=== PATIENT | female | born 1930 | race Caucasian/White ===

== ENCOUNTER 2017-10-24 10:54 | Inpatient (IN) | payer MEDICARE, OTHER ==
--- NOTE | 2017-10-24 12:10 | RADIOLOGY REPORT (SQ) ---
EXAM DESCRIPTION: CHEST SINGLE VIEW COMPLETED DATE/TIME: 10/24/2017 11:59 am REASON FOR STUDY: bed 6 sob COMPARISON: Chest films 09/23/2012, 06/29/2012, 04/23/2011 EXAM PARAMETERS: NUMBER OF VIEWS: One view. TECHNIQUE: Single frontal radiographic view of the chest acquired. RADIATION DOSE: NA LIMITATIONS: None. FINDINGS: LUNGS AND PLEURA: No opacities, masses or pneumothorax. No pleural effusion. MEDIASTINUM AND HILAR STRUCTURES: Moderate size retrocardiac hiatal hernia with air-fluid level. HEART AND VASCULAR STRUCTURES: Moderate cardiomegaly, stable BONES: No acute findings. HARDWARE: None in the chest. OTHER: No other significant finding. IMPRESSION: No acute infiltrates Stable moderate cardiomegaly Retrocardiac hiatal hernia TECHNICAL DOCUMENTATION: JOB ID: [id number] [employer]- All Rights Reserved Reading location - IP/workstation name: [email or web address]
[2017-10-24] MEDS ORDERED: IPRATROPIUM/ALBUTEROL 0.5-2.5 MG/3 ML AMPUL NEB ONE (12:18)
--- NOTE | 2017-10-24 12:20 | ER Document Report ---
ED General - General Chief Complaint: Shortness Of Breath Stated Complaint: SHORTNESS OF BREATH Time Seen by Provider: 10/24/17 12:07 Mode of Arrival: Ambulatory Information source: Patient Notes: This is an 87-year-old female with a history of hypertension, diabetes, dyslipidemia and chronic back pain who presents to the emergency room with shortness of breath, productive cough of yellow/green sputum which is progressed over the last few days. Patient was placed on patient antibiotics on Tuesday night and states that shortness of breath is been getting worse. Oxygen saturation was noted to be 90% on room air in triage. TRAVEL OUTSIDE OF THE [place] IN LAST 30 DAYS: No - HPI Onset: Just prior to arrival Onset/Duration: Gradual Quality of pain: No pain Severity: None Pain Level: Denies Associated symptoms: Shortness of breath. denies: Chest pain, Fever Exacerbated by: Movement Relieved by: Denies Similar symptoms previously: Yes Recently seen / treated by doctor: Yes - Related Data Allergies/Adverse Reactions: Sulfa (Sulfonamide Antibiotics) Allergy (Severe, Verified 10/24/17 12:03) Hives Past Medical History - General Information source: Patient - Social History Smoking Status: Never Smoker Cigarette use (# per day): No Chew tobacco use (# tins/day): No Frequency of alcohol use: None Drug Abuse: None Lives with: Family Family History: Reviewed & Not Pertinent Patient has suicidal ideation: No Patient has homicidal ideation: No - Past Medical History Cardiac Medical History: Reports: Hx Hypercholesterolemia, Hx Hypertension Pulmonary Medical History: Denies: Hx Tuberculosis Neurological Medical History: Denies: Hx Seizures Endocrine Medical History: Reports: Hx Diabetes Mellitus Type 2 - IDDM Renal/ Medical History: Denies: Hx Peritoneal Dialysis GI Medical History: Reports: Hx Gastroesophageal Reflux Disease Musculoskeltal Medical History: Reports Hx Arthritis Psychiatric Medical History: Reports: Hx Depression Past Surgical History: Reports: Hx Appendectomy, Hx Cardiac Catheterization, Hx Cholecystectomy, Hx Hysterectomy, Hx Orthopedic Surgery - back, right arm, Hx Tonsillectomy, Hx Urinary Tract Surgery - bladder tac. Denies: Hx Bowel Surgery , Hx Coronary Artery Bypass Graft, Hx Gastric Bypass Surgery, Hx Herniorrhaphy, Hx Mastectomy, Hx Pacemaker, Hx Tubal Ligation - Immunizations Immunizations up to date: Yes Hx Diphtheria, Pertussis, Tetanus Vaccination: Yes Hx Pneumococcal Vaccination: 04/23/11 Review of Systems - Review of Systems Notes: Review of systems: Constitutional: Denies fever, chills. EENT: Denies ear pain, sinus tenderness, throat pain, throat swelling. Cardiovascular: See H&P Respiratory: See H&P Abdomen: Denies abdominal pain, nausea, vomiting, diarrhea. Denies BRBPR or melena. Genitourinary: Denies dysuria, pyuria, hematuria, flank pain. Musculoskeletal: denies joint pain or swelling, denies back pain. Neurologic: Denies headache, photophobia, neck stiffness, weakness. Denies loss of bowel or bladder function. Denies saddle anesthesia. Skin: Denies rash, lesions. Physical Exam - Vital signs Vitals: Temp Pulse Resp BP Pulse Ox 98.3 F 62 24 H 163/67 H 90 L 10/24/17 11:03 10/24/17 11:03 10/24/17 11:03 10/24/17 11:03 10/24/17 11:03 Notes: Physical exam: GENERAL: 87-year-old female, alert and oriented 3, complaining of some shortness of breath HEAD: Atraumatic, normocephalic. EYES: Pupils equal round and reactive to light, extraocular movements intact, sclera anicteric, conjunctiva are normal. ENT: TMs normal, nares patent, oropharynx clear without exudates. Moist mucous membranes. NECK: Normal range of motion, supple without obvious mass or JVD. LUNGS: Crackles on the left side HEART: Regular rate and rhythm without murmurs, rubs or gallops. ABDOMEN: Soft, normoactive bowel sounds. No tenderness to palpation. No guarding, no rebound. No masses appreciated. EXTREMITIES: Normal range of motion, no pitting or edema. No clubbing or cyanosis. NEUROLOGICAL: Cranial nerves II through XII grossly intact. Normal speech, moving all extremities. PSYCH: Normal mood, normal affect. SKIN: Warm, Dry, normal turgor, no rashes or lesions noted. Course - Re-evaluation Re-evalutation: 10/24/17 16:35 Note: This is an 87-year-old female who recently started on antibiotics for presumptive pneumonia. Patient's been progressively short of breath and was noted to be hypoxic on room air in triage (with an O2 sat of 90%). Patient was initially started on the biotics with labs sent. CTA of the chest reveals more of a pulmonary edema picture. Her BNP is elevated. She was started on nitrates and Lasix and will be admitted to the hospital. - Vital Signs Vital signs: Temp Pulse Resp BP Pulse Ox 98.3 F 62 26 H 163/67 H 94 10/24/17 11:03 10/24/17 11:03 10/24/17 12:00 10/24/17 11:03 10/24/17 12:00 - Laboratory Result Diagrams: 10/24/17 12:05 10/24/17 12:05 Laboratory results interpreted by me: 10/24/17 10/24/17 10/24/17 12:05 12:05 12:05 RDW 14.7 H Monocytes % 19.8 H Est GFR ( Amer) 58 L Est GFR (Non-Af Amer) 48 L NT-Pro-B Natriuret Pep 684 H - Diagnostic Test Radiology reviewed: Image reviewed, Reports reviewed - PA shows no pulmonary emboli. There is a ground glass appearance consistent with pulmonary edema. - EKG Interpretation by Me Rate: Normal Rhythm: NSR - EKG shows normal sinus rhythm with a ventricular rate of 61, premature atrial, plaques, no acute ST-T wave changes Critical Care Note - Critical Care Note Total time excluding time spent on procedures (mins): 60 Discharge - Discharge Clinical Impression: Pulmonary edema Condition: Stable Disposition: ADMITTED INPATIENT Admitting Provider: Hospitalist - Dr Harden Unit Admitted: Telemetry
[2017-10-24] MEDS ORDERED: CEFTRIAXONE 1 GM/D5W RTU 1 GM/50 ML RTUPB IV ONE (12:21)
[2017-10-24] MEDS ORDERED: AZITHROMYCIN INJ 500 MG VIAL IV ONE (12:22)
[2017-10-24 12:38] LABS: ABSOLUTE EOSINOPHILS # (AUTO) 0.2 10^3/uL (0.0-0.6); ABSOLUTE LYMPHOCYTES (AUTO) 0.8 10^3/uL (0.5-4.7); ABSOLUTE NEUT (AUTO) 3.2 10^3/uL (1.7-8.2); BASOPHILS % (AUTO) 0.4 % (0-2); EOSINOPHILS % (AUTO) 3.1 % (0-6); HEMATOCRIT 36.5 % (36.0-47.0); HEMOGLOBIN 12.1 g/dL (12.0-15.5); LYMPHOCYTES % (AUTO) 14.7 % (13-45); MEAN CORPUSCULAR HEMOGLOBIN 28.8 pg (27.0-33.4); MEAN CORPUSCULAR VOLUME 87 fl (80-97); MONOCYTES % (AUTO) 19.8 % (3-13); PLATELET COUNT 180 10^3/uL (150-450); RED BLOOD COUNT 4.19 10^6/uL (3.72-5.28); RED CELL DISTRIBUTION WIDTH 14.7 % (11.5-14.0); TOTAL CELLS COUNTED % (AUTO) 100 %; WHITE BLOOD COUNT 5.1 10^3/uL (4.0-10.5)
[2017-10-24 13:01] LABS: ALANINE AMINOTRANSFERASE 24 U/L (9-52); ALBUMIN 3.8 g/dL (3.5-5.0); ALKALINE PHOSPHATASE 48 U/L (38-126); ANION GAP 13 (5-19); ASPARTATE AMINO TRANSFERASE 23 U/L (14-36); BILIRUBIN,DIRECT 0.3 mg/dL (0.0-0.4); BILIRUBIN,TOTAL 0.3 mg/dL (0.2-1.3); BLOOD UREA NITROGEN 19 mg/dL (7-20); CALCIUM 9.1 mg/dL (8.4-10.2); CARBON DIOXIDE 27 mmol/L (22-30); CHLORIDE 103 mmol/L (98-107); CREATINE KINASE 73 U/L (30-135); GLUCOSE 81 mg/dL (75-110); POTASSIUM 3.8 mmol/L (3.6-5.0); SODIUM 143.4 mmol/L (137-145); TOTAL PROTEIN 6.5 g/dL (6.3-8.2)
[2017-10-24 13:23] LABS: TROPONIN I 0.021 ng/mL
[2017-10-24 15:21] LABS: APPEARANCE,URINE CLEAR; BILIRUBIN,URINE NEGATIVE (NEGATIVE); COLOR,URINE STRAW; GLUCOSE, URINE NEGATIVE (NEGATIVE); KETONES,URINE NEGATIVE (NEGATIVE); LEUKOCYTE ESTERASE,URINE NEGATIVE (NEGATIVE); NITRITE,URINE NEGATIVE (NEGATIVE); PROTEIN,URINE NEGATIVE (NEGATIVE); URINE SPECIFIC GRAVITY 1.015; UROBILINOGEN,URINE NEGATIVE mg/dL (<2.0)
--- NOTE | 2017-10-24 15:34 | RADIOLOGY REPORT (SQ) ---
EXAM DESCRIPTION: CTA CHEST COMPLETED DATE/TIME: 10/24/2017 2:57 pm REASON FOR STUDY: sob COMPARISON: CT chest 07/06/2009 Chest films 10/24/2017, 09/23/2012, 07/11/2009 TECHNIQUE: CT scan of the chest performed using helical scanning technique with dynamic intravenous contrast injection. Images reviewed with lung, soft tissue and bone windows. Reconstructed coronal and sagittal MPR images reviewed. Additional 3 dimensional post-processing performed to develop Maximal Intensity Projection images (IA P). All images stored on PACS. All CT scanners at this facility use dose modulation, iterative reconstruction, and/or weight based d osing when appropriate to reduce radiation dose to as low as reasonably achievable (ALARA). [facility]: Dose Right [facility]: CareDose [facility]: Dose Right [facility]: Teradose 4D [facility]: Datamars CONTRAST TYPE AND DOSE: 82.2 mL of Isovue 370- low osmolar. Contrast bolus adequate for pulmonary arteries and aorta. RENAL FUNCTION: Creatinine 1.08 RADIATION DOSE: 42 mGy . LIMITATIONS: None. FINDINGS: LUNGS AND PLEURA: There is diffuse patchy ground-glass opacity throughout both lungs worri some for pulmonary edema. No pleural effusions. No pneumothorax. No dense consolidation with air bronchograms worrisome for p neumonia. AORTA AND GREAT VESSELS: No thoracic aortic aneurysm. No thoracic dissection. HEART: No pericardial effusion. Mild cardiomegaly. Heavy coronary artery calcifications. PULMONARY ARTERIES: No emboli visualized in the main pulmonary arteries or the segmental branches. HILAR AND MEDIASTINAL STRUCTURES: There is mild adenopathy nonspecific as follows: 2 x 1.5 cm pretracheal lymph node axial image 30 1.5 x 1.1 cm prevascular lymph node axial image 35 3.3 x 2.3 cm sub- carinal lymph node axial image 51 Moderate size retrocardiac hiatal hernia. HARDWARE: None in the chest. UPPER ABDOMEN: 3 cm hypodensity right mid-pole kidney incompletely included in the field of view. Re nal ultrasound recommended for followup THYROID AND OTHER SOFT TISSUES: No masses. No adenopathy. BONES: No acute or significant finding. 3D MIPS: Confirm above findings. OTHER: No other significant finding. IMPRESSION: Diffuse ground-glass opacities from pulmonary edema Nonspecific mediastinal adenopathy Question right midpole renal cortical cyst versus mass COMMENT: Quality ID # [id number]: Final reports with documentation of one or more dose reduction techniques (e.g., Automated exposure control, adjustment of the mA and/or kV according to patient size, use of iterative reconstruction technique) TECHNICAL DOCUMENTATION: JOB ID: [id number] [employer]- All Rights Reserved Reading location - IP/workstation name: [email or web address]
[2017-10-24] MEDS ORDERED: FUROSEMIDE INJ/PF 40 MG/4 ML SDV IV ONE (15:36)
[2017-10-24] MEDS ORDERED: NITROGLYCERIN 2% OINTMENT 1 GM PACKET TP ONE (16:35)
[2017-10-24] MEDS ORDERED: DEXTROSE 50%-WATER 25 GM/50 ML DISP.SYRIN IV PRN ×2 (17:45)
[2017-10-24] MEDS ORDERED: GLUCAGON,HUMAN RECOMB 1 MG INJ IM PRN (17:45)
[2017-10-24] MEDS ORDERED: DEXTROSE 40% GEL 15 GM TUBE PO PRN ×2 (17:45)
[2017-10-24] MEDS ORDERED: NITROGLYCERIN 0.4 MG/TAB 25 TAB/BOTTLE SL PRN (17:51)
[2017-10-24] MEDS ORDERED: CYCLOBENZAPRINE HCL 10 MG TABLET PO PRN (17:51)
[2017-10-24] MEDS ORDERED: ESTRADIOL VG SCH ×2 (18:00→18:45)
--- NOTE | 2017-10-24 18:14 | PDOC H&P ---
History of Present Illness Admission Date/PCP: 10/24/17 16:37 LUIS HERNANDEZ MD Patient complains of: SOB and cough History of Present Illness: The patient is an 87 year old female with a past medical history of Type 2 diabetes Hypertension GERD Chronic pain Anemia of chronic disease Vitamin D deficiency Depression Chronic venous insufficiency Eczema Arthritis Chronic bilateral lower extremity edema next Hyperlipidemia Urinary incontinence Outpatient medications: Coreg 25 mg twice a day Levaquin 750 mg daily Today is day 3 [place] 7.5 every 8 as needed Fentanyl patch 25 mcg every 72 hours Valsartan 160 mg daily Imdur 30 mg daily Pantoprazole 40 mg daily Lasix 20 mg daily Flexeril 10 mg at bedtime as needed Singulair daily Aspirin 81 mg daily Nitroglycerin sublingual as needed Insulin 70 3012 units with breakfast 10 units with dinner Simvastatin 20 mg daily Toviaz 8 mg daily Estradiol vaginal cream Tuesday Benzonatate 100 mg PO prn Denies a prior history of heart failure or atrial fibrillation. Healthcare power of tax attorney is her daughter Tiffanie. Phone #[phone]. The patient requests to be a full code. She presented to the hospital with cough with yellow expectoration which started 3 days ago and she was started on Levaquin by her PCP. Dyspnea progressively got worse with lower extremity edema and chest tightness. She was found to pulmonary edema and was given IV Lasix and nebs. Feels better. Denies chest pain or sore throat. She lives with her daughter who has pneumonia. EKG shows Afib with HR in 50s. Past Medical History Cardiac Medical History: Reports: Hyperlipidema, Hypertension Pulmonary Medical History: Denies: Tuberculosis Neurological Medical History: Denies: Seizures Endocrine Medical History: Reports: Diabetes Mellitus Type 2 - IDDM GI Medical History: Reports: Gastroesophageal Reflux Disease Musculoskeltal Medical History: Reports: Arthritis Psychiatric Medical History: Reports: Depression Past Surgical History Past Surgical History: Reports: Appendectomy, Cardiac Catheterization, Cholecystectomy, Hysterectomy, Orthopedic Surgery - back, right arm, Tonsillectomy Denies: Coronary Artery Bypass Graft, Gastric Bypass Surgery, Herniorrhaphy, Mastectomy, Pacemaker, Tubal Ligation Social History Smoking Status: Never Smoker Hx Recreational Drug Use: No Hx Prescription Drug Abuse: No - Advance Directive Resuscitation Status: Full Code Family History Family History: Other - Blood clots- mother Parental Family History Reviewed: Yes Children Family History Reviewed: Yes Sibling(s) Family History Reviewed.: Yes Medication/Allergy Home Medications: Fesoterodine Fumarate [Toviaz] 8 mg PO DAILY 04/23/11 Simvastatin [Zocor 20 mg Tablet] 20 mg PO QHS 04/23/11 Cyclobenzaprine HCl [Flexeril 10 mg Tablet] 10 mg PO HSP PRN 04/24/11 Insuln Asp Prt/Insulin Aspart [Novolog Mix 70-30 Flexpen Syrn] 20 unit SQ [id number] 06/28/12 Furosemide [Lasix 20 mg Tablet] 20 mg PO QAM 09/23/12 Valsartan [Diovan 160 mg Tablet] 160 mg PO DAILY 09/23/12 Aspirin [Aspirin EC] 81 mg PO DAILY 10/24/17 Benzonatate 100 mg PO TIDP PRN MDD FOR 10DAYS STARTING 10/22/17 10/24/17 Cyclosporine 0.05% Oph Emulsio [Restasis 0.05% Opthalmic Droperette] 1 drop BTH_ EYE DAILY 10/24/17 Estradiol [Estrace] 1 applic VG QHS 10/24/17 Fentanyl [Duragesic 25 Mcg/Hr Transdermal Patch] 1 each TD Q3D 10/24/17 Hydrocodone/Acetaminophen [Hydrocodon-Acetaminoph 7.5-325] 1 tab PO Q8HP PRN Insulin Aspart Prot/Insuln Asp [Novolog Mix 70-30 Flexpen Syrn] 10 unit SQ ACSUPPER 10/24/17 Isosorbide Mononitrate [Imdur 30 mg Tablet.er] 30 mg PO DAILY 10/24/17 Levofloxacin 750 mg PO DAILY MDD FOR 7DAYS STARTING 10/22/17 10/24/17 Montelukast Sodium 10 mg PO DAILY 10/24/17 Nitroglycerin 1 tab SL Q5MP PRN 10/24/17 Pantoprazole Sodium 40 mg PO DAILY 10/24/17 Allergies/Adverse Reactions: Sulfa (Sulfonamide Antibiotics) Allergy (Severe, Verified 10/24/17 12:03) Hives Review of Systems Constitutional: ABSENT: fever(s) Eyes: ABSENT: visual disturbances Ears: ABSENT: hearing changes Nose, Mouth, and Throat: ABSENT: sore throat Cardiovascular: PRESENT: dyspnea on exertion, edema, orthropnea Respiratory: PRESENT: cough, dyspnea, sputum. ABSENT: hemoptysis Gastrointestinal: ABSENT: diarrhea, hematemesis, vomiting Genitourinary: PRESENT: other - urinary incontinence Integumentary: ABSENT: rash Neurological: ABSENT: focal weakness Psychiatric: ABSENT: hallucinations Endocrine: ABSENT: heat intolerance Hematologic/Lymphatic: ABSENT: easy bleeding Physical Exam Vital Signs: Temp Pulse Resp BP Pulse Ox 98.3 F 62 26 H 163/67 H 94 10/24/17 11:03 10/24/17 11:03 10/24/17 12:00 10/24/17 11:03 10/24/17 12:00 General appearance: PRESENT: no acute distress Head exam: PRESENT: normocephalic Eye exam: PRESENT: PERRLA. ABSENT: scleral icterus Ear exam: PRESENT: normal external ear exam Mouth exam: PRESENT: moist Teeth exam: PRESENT: edentulous Neck exam: ABSENT: tracheal deviation Respiratory exam: PRESENT: rhonchi, symmetrical, unlabored, wheezes Cardiovascular exam: PRESENT: irregular rhythm, RRR Vascular exam: ABSENT: pallor GI/Abdominal exam: PRESENT: normal bowel sounds, soft. ABSENT: tenderness Rectal exam: PRESENT: deferred Extremities exam: PRESENT: pedal edema Neurological exam: PRESENT: alert, awake, oriented to person, oriented to place , oriented to time, oriented to situation Psychiatric exam: PRESENT: appropriate affect Skin exam: ABSENT: petechiae Results Impressions: Chest X-Ray 10/24/17 11:47 IMPRESSION: No acute infiltrates Stable moderate cardiomegaly Retrocardiac hiatal hernia Chest/Abdomen CTA 10/24/17 13:56 IMPRESSION: Diffuse ground-glass opacities from pulmonary edema Nonspecific mediastinal adenopathy Question right midpole renal cortical cyst versus mass Assessment & Plan - Diagnosis (1) Acute exacerbation of CHF (congestive heart failure) Qualifiers: Heart failure type: unspecified Qualified Code(s): I50.9 - Heart failure, unspecified Is this a current diagnosis for this admission?: Yes Plan: Check echo to determine EF Serial cardiac enzymes, monitor on tele, Lasix, sodium restriction, monitor intake and output. ACEI, beta tiffanie (reduce Coreg dose- with hold parameters), Aspirin, Imdur. NTG s/l prn Continue Simvastatin. (2) Atrial fibrillation Qualifiers: Atrial fibrillation type: unspecified Qualified Code(s): I48.91 - Unspecified atrial fibrillation Is this a current diagnosis for this admission?: Yes Plan: Rate controlled. On Aspirin. On Coreg with hold parameters. Monitor on tele. Check Echo and TSH. (3) Acute bronchitis Is this a current diagnosis for this admission?: Yes Plan: Day 3 of Levaquin. Incentive spirometer, prn nebs, mucinex, flutter valve. (4) Chronic back pain Is this a current diagnosis for this admission?: Yes Plan: Continue Fentanyl patch and [place] prn. (5) GERD (gastroesophageal reflux disease) Qualifiers: Esophagitis presence: esophagitis presence not specified Qualified Code(s) : K21.9 - Gastro-esophageal reflux disease without esophagitis Is this a current diagnosis for this admission?: Yes Plan: PPI (6) Diabetes 1.5, managed as type 2 Is this a current diagnosis for this admission?: Yes Plan: Diabetic diet Insulin sliding scale. Reduce 70/30 dose since appetite is poor, monitor for hypoglycemia. (7) Stage II decubitus ulcer Is this a current diagnosis for this admission?: Yes Plan: She has chronic incontinence. Consider Jimenez given IV Lasix and to monitor urine output. (8) DVT prophylaxis Is this a current diagnosis for this admission?: Yes Plan: Subcutaneous Lovenox. - Time Time Spent: 50 to 70 Minutes
[2017-10-24] MEDS ORDERED: (PENDING PHARMACY ID) (Fesoterodine Fumarate [Toviaz] 8 MG) PO SCH (19:00)
[2017-10-24 19:26] LABS: CREATINE KINASE MB 1.12 ng/mL (<4.55); TROPONIN I 0.031 ng/mL
--- NOTE | 2017-10-24 20:17 | EKG REPORT ---
SEVERITY:- ABNORMAL ECG - A FIB VS SINUS WITH APCs, REC REPEAT EKG LEFT AXIS DEVIATION CONSIDER ANTEROSEPTAL INFARCT : Confirmed by: Zoey Ramirez 24-Oct-2017 20:16:59
[2017-10-24] MEDS: CYCLOSPORINE 0.05% OPH EMULSIO 0.4 ML DROPERETTE OU SCH (22:27)
[2017-10-24] MEDS: FUROSEMIDE INJ/PF 20 MG/2 ML SDV IV SCH (22:29)
[2017-10-24] MEDS: LEVOFLOXACIN 750 MG TABLET PO SCH (22:30)
[2017-10-24] MEDS: GUAIFENESIN 600 MG TABLET.SA PO SCH (22:30)
[2017-10-24] MEDS: SIMVASTATIN 10 MG TABLET PO SCH (22:31)
[2017-10-24] MEDS: CARVEDILOL 12.5 MG TABLET PO SCH (22:31)
[2017-10-24] MEDS: HYDROCODONE/ACETAMINOPHEN 7.5-325 MG TABLET PO PRN (22:32)
[2017-10-24] MEDS: INSULIN LISPRO 100 UNIT/ML 3 ML VIAL SUBCUT PRN (23:00)
[2017-10-25 02:35] LABS: CREATINE KINASE MB 0.79 ng/mL (<4.55)
[2017-10-25 02:44] LABS: TROPONIN I 0.046 ng/mL
[2017-10-25] MEDS: LANSOPRAZOLE 30 MG TAB.RAP.DR PO SCH (05:25)
[2017-10-25 06:57] LABS: HEMATOCRIT 36.5 % (36.0-47.0); HEMOGLOBIN 11.9 g/dL (12.0-15.5); MEAN CORPUSCULAR HEMOGLOBIN 28.3 pg (27.0-33.4); MEAN CORPUSCULAR HGB CONC 32.6 g/dL (32.0-36.0); MEAN CORPUSCULAR VOLUME 87 fl (80-97); PLATELET COUNT 172 10^3/uL (150-450); RED CELL DISTRIBUTION WIDTH 14.5 % (11.5-14.0); WHITE BLOOD COUNT 4.3 10^3/uL (4.0-10.5)
[2017-10-25 07:03] LABS: INTERNATIONAL RATION (INR) 1.11; PROTHROMBIN TIME 14.9 SEC (11.4-15.4)
[2017-10-25 07:04] LABS: PARTIAL THROMBOPLASTIN TIME 41.1 SEC (23.5-35.8)
[2017-10-25 07:22] LABS: ANION GAP 14 (5-19); BLOOD UREA NITROGEN 16 mg/dL (7-20); CALCIUM 8.8 mg/dL (8.4-10.2); CARBON DIOXIDE 30 mmol/L (22-30); CHLORIDE 101 mmol/L (98-107); CHOLESTEROL 134.19 mg/dL (0-200); GLUCOSE 124 mg/dL (75-110); PHOSPHORUS 4.1 mg/dL (2.5-4.5); POTASSIUM 3.4 mmol/L (3.6-5.0); SODIUM 144.5 mmol/L (137-145); TRIGLYCERIDES 85 mg/dL (<150)
[2017-10-25 07:33] LABS: DIRECT LDL 64 mg/dL (<100)
[2017-10-25] MEDS ORDERED: [UNRECOGNIZED DRUG - OTHER] SQ SCH (08:00)
[2017-10-25] MEDS ORDERED: INSULIN ASPART PROTAMINE SQ SCH ×2 (08:00)
[2017-10-25] MEDS ORDERED: [UNRECOGNIZED DRUG - OTHER] SQ SCH (08:00)
[2017-10-25] MEDS ORDERED: INSULIN ASPART SQ SCH ×2 (08:00)
--- NOTE | 2017-10-25 08:57 | EKG REPORT ---
SEVERITY:- ABNORMAL ECG - SINUS RHYTHM ANTERIOR INFARCT, AGE INDETERMINATE : Confirmed by: Zoey Ramirez 25-Oct-2017 08:55:53
[2017-10-25] MEDS: HUM INSULIN NPH/REG INSULIN HM 100 UNIT/1 ML 3 ML SUBCUT SCH ×2 (09:16→19:58)
[2017-10-25] MEDS: ENOXAPARIN SODIUM INJ 40 MG/0.4 ML DISP.SYRIN SUBCUT SCH (09:18)
[2017-10-25] MEDS: FUROSEMIDE INJ/PF 20 MG/2 ML SDV IV SCH ×2 (09:19→22:13)
[2017-10-25] MEDS: GUAIFENESIN 600 MG TABLET.SA PO SCH ×2 (09:19→22:13)
[2017-10-25] MEDS: CARVEDILOL 12.5 MG TABLET PO SCH (09:20)
[2017-10-25] MEDS: ISOSORBIDE MONONITRATE 30 MG TAB.ER.24H PO SCH (09:20)
[2017-10-25] MEDS: VALSARTAN 160 MG TABLET PO SCH (09:20)
[2017-10-25] MEDS: ASPIRIN 81 MG TABLET, ENT COATED PO SCH (09:20)
[2017-10-25] MEDS: MONTELUKAST SODIUM 10 MG TABLET PO SCH (09:20)
[2017-10-25] MEDS: FENTANYL 25 MCG/HR PATCH.TD72 TD SCH (09:21)
[2017-10-25] MEDS: CYCLOSPORINE 0.05% OPH EMULSIO 0.4 ML DROPERETTE OU SCH ×2 (09:24→18:25)
[2017-10-25] MEDS: DOCUSATE SODIUM 100 MG CAPSULE PO SCH (09:24)
[2017-10-25] MEDS ORDERED: (PENDING PHARMACY ID) (Fesoterodine Fumarate [Toviaz] 8 MG) PO SCH (10:00)
--- NOTE | 2017-10-25 15:44 | PDOC PROGRESS REPORT ---
Subjective Progress Note for:: 10/25/17 Subjective:: Patient still has a lot of wheezing but is feeling better Cough has improved no chest pains No fever no chills Reason For Visit: ATRIAL FIBRILLATION, CHF EXACERBATION Physical Exam Vital Signs: Temp Pulse Resp BP Pulse Ox 98.2 F 60 18 121/65 98 10/25/17 12:00 10/25/17 12:00 10/25/17 12:00 10/25/17 12:00 10/25/17 12:00 Intake & Output 10/24/17 10/25/17 10/26/17 00:59 00:59 00:59 Output Total 1600 Balance -1600 Weight 95 kg General appearance: PRESENT: no acute distress, cooperative Head exam: PRESENT: atraumatic, normocephalic Eye exam: PRESENT: conjunctiva pink, EOMI, PERRLA. ABSENT: scleral icterus Neck exam: ABSENT: carotid bruit, JVD, lymphadenopathy, thyromegaly Respiratory exam: PRESENT: wheezes - bilaterally. ABSENT: accessory muscle use Cardiovascular exam: PRESENT: RRR. ABSENT: diastolic murmur, rubs, systolic murmur Pulses: PRESENT: normal dorsalis pedis pul GI/Abdominal exam: PRESENT: normal bowel sounds, soft. ABSENT: distended, guarding, mass, organolmegaly, rebound, tenderness Extremities exam: PRESENT: +1 edema Neurological exam: PRESENT: alert, awake, oriented to person, oriented to place , oriented to time, oriented to situation, CN II-XII grossly intact. ABSENT: motor sensory deficit Psychiatric exam: PRESENT: appropriate affect, normal mood. ABSENT: homicidal ideation, suicidal ideation Results Laboratory Results: 10/25/17 06:26 10/25/17 06:26 10/25/17 10/25/17 10/25/17 06:26 06:26 06:26 WBC 4.3 RBC 4.20 Hgb 11.9 L Hct 36.5 MCV 87 MCH 28.3 MCHC 32.6 RDW 14.5 H Plt Count 172 Sodium 144.5 Potassium 3.4 L Chloride 101 Carbon Dioxide 30 Anion Gap 14 BUN 16 Creatinine 0.95 Est GFR ( Amer) > 60 Est GFR (Non-Af Amer) 56 L Glucose 124 H Calcium 8.8 Phosphorus 4.1 Magnesium 1.9 Triglycerides 85 Cholesterol 134.19 LDL Cholesterol Direct 64 VLDL Cholesterol 17.0 HDL Cholesterol 52 TSH 1.65 10/24/17 10/24/17 10/25/17 18:37 18:37 01:02 Creatine Kinase 65 60 CK-MB (CK-2) 1.12 Troponin I 0.031 NT-Pro-B Natriuret Pep 10/25/17 10/25/17 01:02 06:26 Creatine Kinase CK-MB (CK-2) 0.79 Troponin I 0.046 NT-Pro-B Natriuret Pep 782 H EKG Comments: echo pending Impressions: Chest X-Ray 10/24/17 11:47 IMPRESSION: No acute infiltrates Stable moderate cardiomegaly Retrocardiac hiatal hernia Chest/Abdomen CTA 10/24/17 13:56 IMPRESSION: Diffuse ground-glass opacities from pulmonary edema Nonspecific mediastinal adenopathy Question right midpole renal cortical cyst versus mass Assessment & Plan - Diagnosis (1) Pneumonia Qualifiers: Pneumonia type: due to unspecified organism Laterality: unspecified laterality Lung location: unspecified part of lung Qualified Code(s): J18.9 - Pneumonia, unspecified organism Is this a current diagnosis for this admission?: Yes Plan: Community Acquired pneumonia pneumonia was present on admission will add Ceftriaxone to Levaquin (2) Acute bronchitis Qualifiers: Bronchitis organism: unspecified organism Qualified Code(s): J20.9 - Acute bronchitis, unspecified Is this a current diagnosis for this admission?: Yes Plan: wheezing is persistent add prednisone continue nebs (3) Acute exacerbation of CHF (congestive heart failure) Qualifiers: Heart failure type: unspecified Qualified Code(s): I50.9 - Heart failure, unspecified Is this a current diagnosis for this admission?: Yes Plan: echo pending continue mild diuresis (4) HTN (hypertension), benign Is this a current diagnosis for this admission?: Yes Plan: controlled (5) Diabetes 1.5, managed as type 2 Is this a current diagnosis for this admission?: Yes Plan: continue present management (6) GERD (gastroesophageal reflux disease) Qualifiers: Esophagitis presence: esophagitis presence not specified Qualified Code(s) : K21.9 - Gastro-esophageal reflux disease without esophagitis Is this a current diagnosis for this admission?: Yes (7) Hypokalemia Is this a current diagnosis for this admission?: Yes Plan: replace - Time Time Spent with patient: 25-34 minutes - Inpatient Certification Based on my medical assessment, after consideration of the patient's comorbidities, presenting symptoms, or acuity I expect that the services needed warrant INPATIENT care.: Yes I certify that my determination is in accordance with my understanding of Medicare's requirements for reasonable and necessary INPATIENT services [42 CFR 412.3e].: Yes Medical Necessity: Need For Continuous Telemetry Monitoring, Risk of Complication if Not Cared For in Hospital - Plan Summary Plan Summary: continue above management
[2017-10-25] MEDS ORDERED: INSULIN ASPART PROT SQ SCH (16:00)
[2017-10-25] MEDS ORDERED: [UNRECOGNIZED DRUG - OTHER] SQ SCH (16:00)
[2017-10-25] MEDS ORDERED: INSULN ASP U SQ SCH (16:00)
[2017-10-25] MEDS ORDERED: PREDNISONE 20 MG TABLET PO ONE (17:00)
--- NOTE | 2017-10-25 17:37 | XCELERA REPORT ---
[address] [address] Transthoracic Echocardiogram Report Name: CHERELLE SOUSA Age: 87 yrs Gender: Female : 1930 Patient Status: Inpatient Patient Location: [address] [place], [place] [address] Study Date: 10/25/2017 09:48 AM Height: 65 in Weight: 235 lb BSA: 2.1 m2 Procedure: A two-dimensional transthoracic echocardiogram with color flow and Doppler was performed. The study was technically difficult with many images being suboptimal in quality. Reason For Study: Atrial Fibrillation / CHF History: Atrial Fibrillation / CHF. Ordering Physician: KIET MORALES Performed By: Monica Jesus Interpretation Summary The left ventricle is normal in size. There is normal left ventricular wall thickness. LV EF is 60% Left ventricular systolic function is normal. Doppler measurements suggest normal left ventricular diastolic function The left ventricular wall motion is normal. There is no thrombus. The right ventricle is not well visualized secondary to technical limitations The left atrium is mildly dilated. There is no evidence of mitral valve prolapse. There is no vegetation seen on the mitral valve. There is no mitral valve stenosis. There is a trace amount of mitral regurgitation There is no aortic valvular vegetation. There is mild aortic stenosis There is a peak gradient of 20 mm of Hg. There is no LVOT obstruction. No aortic regurgitation is present. There is no tricuspid stenosis. There is a trace amount of tricuspid regurgitation Right ventricular systolic pressure is normal. RVSP is 20 mm of Hg , with RA mean of 5. There is no pericardial effusion. MMode/2D Measurements & Calculations RVDd: 2.7 cm LVIDd: 4.8 cmFS: 31.0 % Ao root diam: 3.0 cm IVSd: 1.1 cm LVIDs: 3.3 cmEDV(Teich): 109.7 ml LVPWd: 1.0 cmESV(Teich): 45.5 ml Ao root area: 7.0 cm2 EF(Teich): 58.6 % LVOT diam: 2.0 cm LVOT area: 3.1 cm2 Doppler Measurements & Calculations MV E max francisco: MV dec slope: Ao V2 max: LV V1 max P.9 cm/sec 482.8 cm/sec2 222.4 cm/sec 4.0 mmHg MV A max francisco: MV dec time: Ao max PG: LV V1 max: 94.1 cm/sec 0.22 sec 19.8 mmHg 99.9 cm/sec MV E/A: 1.1 FADIA(V,D): 1.4 cm2 PA V2 max: PI end-d francisco: TR max francisco: 97.5 cm/sec 98.9 cm/sec 193.7 cm/sec PA max P.8 mmHg TR max P.0 mmHg Left Ventricle The left ventricle is normal in size. There is normal left ventricular wall thickness. LV EF is 60%. Left ventricular systolic function is normal. Doppler measurements suggest normal left ventricular diastolic function. The left ventricular wall motion is normal. There is no thrombus. Right Ventricle The right ventricle is not well visualized secondary to technical limitations. Atria Right atrium not well visualized secondary to technical limitations. The left atrium is mildly dilated. Mitral Valve There is no evidence of mitral valve prolapse. There is no vegetation seen on the mitral valve. There is no mitral valve stenosis. There is a trace amount of mitral regurgitation. Aortic Valve There is no aortic valvular vegetation. There is mild aortic stenosis. There is a peak gradient of 20 mm of Hg. There is no LVOT obstruction. No aortic regurgitation is present. Tricuspid Valve There is no tricuspid stenosis. There is a trace amount of tricuspid regurgitation. Right ventricular systolic pressure is normal. RVSP is 20 mm of Hg , with RA mean of 5. Pulmonic Valve There is no pulmonic valvular stenosis. There is a trace amount of pulmonic regurgitation. Great Vessels The aortic root is not well visualized. Effusions There is no pericardial effusion. : KIET MORALES > Fiorella Cobian
[2017-10-25] MEDS: LEVOFLOXACIN 750 MG TABLET PO SCH (22:13)
[2017-10-25] MEDS: SIMVASTATIN 10 MG TABLET PO SCH (22:13)
[2017-10-25] MEDS: HYDROCODONE/ACETAMINOPHEN 7.5-325 MG TABLET PO PRN (22:13)
[2017-10-26] MEDS: LANSOPRAZOLE 30 MG TAB.RAP.DR PO SCH (06:21)
--- NOTE | 2017-10-26 08:16 | XCELERA REPORT ---
[address] [address] Lower Extremity Venous Evaluation Name: CHERELLE SOUSA Age: 87 yrs Gender: Female : 1930 Patient Status: Inpatient Patient Location: [address] [place], [place] [address] Study Date: 10/25/2017 10:08 AM Procedure: Color flow and duplex imaging bilaterally of the veins of the lower extremities as well as the Common Femoral veins. Reason For Study: Swelling of bilateral legs Ordering Physician: KIET MORALES Performed By: Monica Jesus Right Sided Venous Evaluation Normal vessel filling wall to wall, compression and augmentation as well as Colour flow down to the infrageniculate veins. Left Sided Venous Evaluation Normal vessel filling wall to wall, compression and augmentation as well as Colour flow down to the infrageniculate veins. Interpretation Summary No duplex evidence of DVT or obstruction in the bilateral lower extremities. : KIET MORALES > Kobe Jorge
--- NOTE | 2017-10-26 08:42 | RADIOLOGY REPORT (SQ) ---
EXAM DESCRIPTION: CHEST SINGLE VIEW COMPLETED DATE/TIME: 10/26/2017 7:49 am REASON FOR STUDY: pneumonia COMPARISON: CT chest 10/24/2017 Chest film 10/24/2017, 09/23/2012 EXAM PARAMETERS: NUMBER OF VIEWS: One view. TECHNIQUE: Single frontal radiographic view of the chest acquired. RADIATION DOSE: NA LIMITATIONS: None. FINDINGS: LUNGS AND PLEURA: No opacities, masses or pneumothorax. No pleural effusion. MEDIASTINUM AND HILAR STRUCTURES: Moderate-sized left retrocardiac hiatal hernia. HEART AND VASCULAR STRUCTURES: Heart normal in size. Normal vasculature. BONES: No acute findings. HARDWARE: None in the chest. OTHER: No other significant finding. IMPRESSION: NO ACUTE RADIOGRAPHIC FINDING IN THE CHEST. TECHNICAL DOCUMENTATION: JOB ID: [id number] [employer]- All Rights Reserved Reading location - IP/workstation name: [email or web address]
[2017-10-26] MEDS: HUM INSULIN NPH/REG INSULIN HM 100 UNIT/1 ML 3 ML SUBCUT SCH ×2 (09:10→16:45)
[2017-10-26] MEDS: ASPIRIN 81 MG TABLET, ENT COATED PO SCH (09:13)
[2017-10-26] MEDS: VALSARTAN 160 MG TABLET PO SCH ×2 (09:13→21:48)
[2017-10-26] MEDS: GUAIFENESIN 600 MG TABLET.SA PO SCH ×2 (09:13→21:48)
[2017-10-26] MEDS: MONTELUKAST SODIUM 10 MG TABLET PO SCH (09:13)
[2017-10-26] MEDS: ISOSORBIDE MONONITRATE 30 MG TAB.ER.24H PO SCH (09:14)
[2017-10-26] MEDS: FUROSEMIDE INJ/PF 20 MG/2 ML SDV IV SCH (09:14)
[2017-10-26] MEDS: PREDNISONE 20 MG TABLET PO SCH (09:14)
[2017-10-26] MEDS: ENOXAPARIN SODIUM INJ 40 MG/0.4 ML DISP.SYRIN SUBCUT SCH (09:15)
[2017-10-26] MEDS: CYCLOSPORINE 0.05% OPH EMULSIO 0.4 ML DROPERETTE OU SCH ×2 (09:16→17:14)
[2017-10-26] MEDS: DOCUSATE SODIUM 100 MG CAPSULE PO SCH (09:17)
--- NOTE | 2017-10-26 10:58 | PDOC PROGRESS REPORT ---
Subjective Subjective:: Patient still has a lot of wheezing but is feeling better Cough has improved no chest pains No fever no chills 10/26 improved decrease cough BP is runnig high and meds were adjusted betablockers were d/c as patient has no evidence of systolic CHF Reason For Visit: ATRIAL FIBRILLATION, CHF EXACERBATION Physical Exam Vital Signs: Temp Pulse Resp BP Pulse Ox 98.1 F 65 17 172/68 H 100 10/26/17 07:07 10/26/17 07:07 10/26/17 07:07 10/26/17 07:07 10/26/17 07:07 Intake & Output 10/25/17 10/26/17 10/27/17 00:59 00:59 00:59 Intake Total 1760 125 Output Total 4300 300 Balance -2540 -175 Weight 95 kg 94.5 kg General appearance: PRESENT: no acute distress, cooperative Head exam: PRESENT: atraumatic, normocephalic Eye exam: PRESENT: conjunctiva pink, EOMI, PERRLA. ABSENT: scleral icterus Neck exam: ABSENT: carotid bruit, JVD, lymphadenopathy, thyromegaly Respiratory exam: PRESENT: wheezes - bilaterally. ABSENT: accessory muscle use Cardiovascular exam: PRESENT: RRR. ABSENT: diastolic murmur, rubs, systolic murmur Pulses: PRESENT: normal dorsalis pedis pul GI/Abdominal exam: PRESENT: normal bowel sounds, soft. ABSENT: distended, guarding, mass, organolmegaly, rebound, tenderness Extremities exam: PRESENT: +1 edema Neurological exam: PRESENT: alert, awake, oriented to person, oriented to place , oriented to time, oriented to situation, CN II-XII grossly intact. ABSENT: motor sensory deficit Psychiatric exam: PRESENT: appropriate affect, normal mood. ABSENT: homicidal ideation, suicidal ideation Results Laboratory Results: 10/25/17 06:26 10/25/17 06:26 10/24/17 10/24/17 10/25/17 18:37 18:37 01:02 Creatine Kinase 65 60 CK-MB (CK-2) 1.12 Troponin I 0.031 NT-Pro-B Natriuret Pep 10/25/17 10/25/17 01:02 06:26 Creatine Kinase CK-MB (CK-2) 0.79 Troponin I 0.046 NT-Pro-B Natriuret Pep 782 H EKG Comments: eho 5/ normal EF Normal diastolic function Impressions: Chest/Abdomen CTA 10/24/17 13:56 IMPRESSION: Diffuse ground-glass opacities from pulmonary edema Nonspecific mediastinal adenopathy Question right midpole renal cortical cyst versus mass Chest X-Ray 10/26/17 06:00 IMPRESSION: NO ACUTE RADIOGRAPHIC FINDING IN THE CHEST. Assessment & Plan - Diagnosis (1) Pneumonia Qualifiers: Pneumonia type: due to unspecified organism Laterality: unspecified laterality Lung location: unspecified part of lung Qualified Code(s): J18.9 - Pneumonia, unspecified organism Is this a current diagnosis for this admission?: Yes Plan: Community Acquired pneumonia pneumonia was present on admission will add Ceftriaxone to Levaquin 10/26 improved continue present RX flutter valve (2) Acute bronchitis Qualifiers: Bronchitis organism: unspecified organism Qualified Code(s): J20.9 - Acute bronchitis, unspecified Is this a current diagnosis for this admission?: Yes Plan: wheezing is persistent add prednisone continue nebs asthmatic bronchitis improving (3) HTN (hypertension), benign Is this a current diagnosis for this admission?: Yes Plan: increase valsartan to bid (4) Diabetes 1.5, managed as type 2 Is this a current diagnosis for this admission?: Yes (5) GERD (gastroesophageal reflux disease) Qualifiers: Esophagitis presence: esophagitis presence not specified Qualified Code(s) : K21.9 - Gastro-esophageal reflux disease without esophagitis Is this a current diagnosis for this admission?: Yes (6) Hypokalemia Is this a current diagnosis for this admission?: Yes Plan: replace repeat BMP , Mag today - Time Time Spent with patient: 25-34 minutes
--- NOTE | 2017-10-26 11:12 | CONSULTATION REPORT E ---
Consultation Report NAME: CHERELLE SOUSA : 1930 AGE: 87Y DATE: 10/25/2017 401 A TO: TJ HUGHES M.D. FROM: KIET VU M.D. Requesting Physician REASON FOR CONSULTATION: Patient said to have atrial fibrillation and also congestive heart failure. HISTORY OF PRESENT ILLNESS: Patient is an 87-year-old female with known history of hypertension, diabetes mellitus, chronic leg edema, who states that since the last 3 days, she has been having fever and chills, with the temperature at most being 100 degrees Fahrenheit. She also has been having cough productive of a yellowish sputum. She initially had some orthopnea, but no PND. She also noticed that the chronic leg edema that she has due to venous insufficiency was slightly increased. The patient denies any chest pain, palpitations, syncope or near-syncope. There are no TIA or CVA symptoms. She also states that she becomes short of breath when she coughs a lot, and also has wheezing, and also has baseline shortness of breath with wheezing and orthopnea. The orthopnea has now resolved. She has no PND. Initially, the patient's EKG done on October 24, 2017 at 11:32 a.m. showed a rhythm which was interpreted as atrial fibrillation, but my interpretation is that the patient has sinus rhythm with APCs, and there was no evidence of atrial fibrillation. The patient has no prior history of atrial fibrillation or any other arrhythmia. The patient's initial chest x-ray was reported as having no acute infiltrates, stable moderate cardiomegaly and retrocardiac hiatal hernia. The patient's pulmonary CTA was read as ground-glass appearance in both lungs, suggestive of congestive heart failure, and hence, the patient was treated for congestive heart failure. She was also started on Coreg. PAST MEDICAL HISTORY: Positive for: 1. Hypertension. 2. Obesity. 3. Chronic leg edema, secondary to venous insufficiency. She was diagnosed with congestive heart failure about 10 years ago, due to increased leg swelling, and at that time, 10 years ago, she had an echo and a stress test, and these were found to be normal. Hence, this was secondary to chronic venous insufficiency and not due to heart failure. 4. Diabetes type 2. 5. Hyperlipidemia. 6. GERD. 7. Moderate-sized retrocardiac hiatal hernia, which persists. 8. Anxiety and depression. She denies any history of asthma or COPD. There is no history of TIAs or CVA symptoms. There are no symptoms of seizures or sleep apnea. There is no history of chronic kidney disease. On this admission, the patient's GFR came down to 48, and now has improved to 58. PAST SURGICAL HISTORY: Positive for: 1. Tonsillectomy. 2. Adenoidectomy. 3. Appendectomy. 4. Cholecystectomy. 5. Hysterectomy. 6. Bladder tuck surgery. 7. Reduction of humeral fracture. FAMILY HISTORY: Positive for history of myocardial infarction in father at age 85. There is no previous history of coronary artery disease in the family. Daughter has a history of hypertension. SOCIAL HISTORY: The patient is . She lives with her daughter, who is the surrogate healthcare decision maker for the patient. The patient is a FULL CODE. The patient does not smoke. The patient has no history of ETOH abuse. ALLERGIES: She is allergic to SULFONAMIDES. REVIEW OF SYSTEMS: CARDIAC: She has chronic leg edema, but no history of NM or angina, although the patient is on isosorbide. She denies a history of NM or anginal symptoms. She has a history of hypertension. There is no history of palpitations or syncope. RESPIRATORY: There is no history of asthma or COPD, but the patient recently was admitted with a 3-day history of cough and sputum production, which was yellowish in color, and wheezing and orthopnea. As mentioned earlier, she has chronic leg edema. MUSCULOSKELETAL: She has a history of osteoarthritis present, but no history of . Denies any history of a head injury. EYES: No history of amblyopia, diplopia. No history of amaurosis fugax. EARS: No history of tinnitus. No history of hearing loss. No recurrent ear infections. NOSE: No history of hayfever. No history of nosebleeds. No history of nasal polyps. MOUTH: No history of altered taste sensation. No history of ulcers in the mouth. No bleeding from the gums. THROAT: No history of odynophagia, dysphagia. No history of recurrent sore throats. SKIN: No history of psoriasis. No history of skin cancer. No history of pruritus. No history of eczema. GI: History of GERD present. History of hiatal hernia present. No history of GI bleed. No history of fatty food intolerance. No history of abdominal pain. CONSTITUTIONAL: History of low grade fever or chills, as mentioned earlier. ENDOCRINE: History of diabetes mellitus type 2. No history of polydipsia, polyuria. No history of thyroid disease. 4TH GRADE TEACHER: There is no history of TIA or CVA. No history of seizures, headaches or migraines. PSYCHIATRIC: The patient has a history of anxiety and depression, but well-controlled on medication. VASCULAR: No history of calf or buttock claudication. Chronic leg edema due to venous insufficiency. No history of DVT. HEMATOLOGIC: No history of bleeding diathesis. No history of clotting disorders. RENAL: No symptoms of UTI. No history of hematuria, pyuria or dysuria. She has no prior history of chronic kidney disease, but at present, on admission, the patient's GFR was reduced to 48, which has now improved. This most likely is secondary to sepsis. DISPOSITION: The patient is a FULL CODE. Her daughter is her surrogate healthcare decision-maker. MEDICATIONS: She is currently on: 1. Aspirin 81 mg daily. 2. Tessalon Perles 100 mg p.o. t.i.d. 3. Coreg 12.5 mg p.o. q.12 hours. 4. Cyclosporin 0.05% ophthalmic emulsion, 1 drop both eyes b.i.d. 5. 10 mg p.o. at bedtime p.r.n. 6. Hypoglycemic precautions with glucose 40% gel, 15 grams p.o. and 30 grams p.o. p.r.n. 7. Hypoglycemic precautions with subcutaneous glucagon 1 mg p.r.n. 8. IV Dextrose 50% 12.5 grams IV and 25 grams IV p.r.n. respectively for hypoglycemia. 9. Colace 100 mg p.o. daily. 10. Lovenox 40 mg subcutaneously daily. 11. Estrace 1 application vaginally Tuesday, Tuesday and Tuesday. 12. Duragesic 25 mcg per hour, 1 patch transdermally q.3 days. 13. Toviaz 8 mg p.o. daily. 14. Lasix 20 mg IV q.12 hours. 15. Glucagon 1 mg IV p.r.n. for hypoglycemia. 16. Mucinex 1200 mg p.o. q.12 hours. 17. Humulin insulin NPH/Regular insulin 10 units subcutaneously before meals and at bedtime, and 8 units subcutaneously before supper. 18. Hydrocodone/acetaminophen 1 tablet p.o. q.8 hours p.r.n. 19. Accu-Cheks before meals t.i.d. and at bedtime, with sliding scale insulin coverage. 20. DuoNeb nebulizer treatment q.3 hours p.r.n. 21. Isosorbide mononitrate 30 mg p.o. daily. 22. Prevacid 10 mg p.o. q.6 hours. 23. Levaquin 750 mg p.o. at bedtime. 24. Singulair 10 mg p.o. daily. 25. Nitroglycerin 1 tablet sublingual q.5 minutes p.r.n. 26. Prednisone 60 mg p.o. x1, then 60 mg p.o. daily. 27. Simvastatin 20 mg p.o. at bedtime. 28. Diovan 160 mg p.o. daily. PHYSICAL EXAMINATION: GENERAL: The patient is slightly obese, in some distress due to her cough and shortness of breath, due to her lung infection. VITAL SIGNS: She is afebrile, with a temperature of 98.2 degrees Fahrenheit, pulse 60 beats per minute, blood pressure 129/65, respirations 18 per minute, O2 sats 98% on 3 liters nasal cannula. HEENT: Head is atraumatic, normocephalic. Eyes: Pupils are equal, round and regular, react to light and accommodation. Extraocular movements are normal. There is no conjunctival pallor. There is no scleral icterus. Ears: Tympanic membranes are intact. External ears and canals are clear. Nose: There is no deviated nasal septum. There is no inflammation of the mucous membranes. Mouth: Mucous membranes of the mouth are moist. There is no bleeding from the gums. Throat: There is no redness of the oropharynx. There are no exudates. SKIN: There is no skin rash. There is no petechiae or ecchymosis and no skin lesions. NECK: Supple. There is no JVD. Carotids are equal. There is no bruit. There is no goiter. There is no lymphadenopathy. Trachea is central. LUNGS: Show diminished air entry bilaterally with significant rhonchi and wheezing bilaterally, with dry crackles. No rales or CHF. HEART: S1, S2 are heard. There is no S3 gallop. There is no S4 gallop. There is a systolic murmur at the left sternal border, at the apex. There is no rub. ABDOMEN: Soft, nontender. There is no hepatosplenomegaly. Bowel sounds are well-heard. There is no tender area or masses. There is no rebound, guarding or rigidity. EXTREMITIES: There is slight edema. Leg pulses are diminished. There is 1+ bilateral pedal edema with chronic venous stasis dermatitis changes in the legs. There is no evidence of cellulitis. There is no DVT. 4TH GRADE TEACHER: The patient is conscious, awake, alert, oriented x3, with no focal deficits. PSYCHIATRIC: The patient does appear to be slightly anxious, but not unduly anxious. She does not seem to be agitated. DIAGNOSTICS: Her chest x-ray shows no acute infiltrates. Her CTA of the chest shows no pulmonary embolism. There is a ground-glass appearance interpreted as congestive heart failure. Clinically, the patient does not have congestive heart failure. The patient's echocardiogram shows the left ventricle is normal in size. There is normal left ventricular wall thickness. LV ejection fraction is 60%. Left ventricular systolic function is normal. There is no wall motion abnormality. Doppler measurements suggest normal left ventricular diastolic function. There is no thrombus. The right ventricle is not well-visualized. The left atrium is mildly dilated. There is no evidence of mitral valve prolapse. There is no vegetation seen on the mitral valve. There is no mitral valve stenosis. There is trace mitral regurgitation. There is no aortic valve vegetation. There was mild aortic stenosis. There was a peak gradient of 20 mmHg. There was no LVOT obstruction. There is no aortic regurgitation. There is no tricuspid stenosis. There is a trace amount of tricuspid regurgitation. Right ventricular systolic pressure is normal. There is no pericardial effusion. The right ventricular systolic pressure is 20 mmHg, with a right atrial mean of 5. Patient's subsequent EKG shows sinus rhythm, poor R wave progression, versus old anteroseptal NM. The patient's white count is 4300, hemoglobin is 7.9, hematocrit is 26.5, platelet count is 172,000. The patient's sodium is 144.5, potassium is low at 3.4, chloride is 101, CO2 is 30. The patient's BUN is 16, creatinine is 0.95. GFR is reduced mildly at 56 mL. Her glucose is 134. Her calcium is 8.8. Hemoglobin A1c is 6.6. NT-proBNP is 782. Her troponin I is 0.046. Her phosphorus is 4.1, magnesium is 1.9. Her triglycerides are 85. Her LDL cholesterol is 264, HDL cholesterol is 252. Her TSH is 1.65. The patient's pro time is 14.9, INR is 1.11, PTT is 41.1. IMPRESSION: 1. There is no evidence of atrial fibrillation. EKG has been reviewed and interpreted by me. 2. No evidence of congestive heart failure by physical exam or by echocardiographic findings. 3. Diffuse/atypical pneumonia/infected bronchitis. 4. Hypokalemia with mild renal insufficiency. 5. Chronic leg edema, secondary to venous insufficiency. 6. Hypertension, blood pressure well-controlled. 7. Diabetes mellitus type 2, insulin-dependent. 8. Hyperlipidemia. 9. Obesity, which is mild. RECOMMENDATIONS: In view of the patient's acute wheezing, would stop the patient's Coreg. Later, would switch her to a beta tiffanie. In view of the patient definitely saying that she does not have coronary artery disease, NM or anginal symptoms, and the fact that she has been placed on isosorbide and aspirin, would recommend that once the patient recovers from her lung condition, would recommend that the patient have an IV Lexiscan Cardiolite stress test, which can be also done as an outpatient. Note that the medication has been reviewed. Discussed echo findings with the patient and with the attending physician. My impression that the patient does not have congestive heart failure or atrial fibrillation has been discussed with the attending physician and the patient on this admission. Note, my decision-making is of moderate to high complexity, in view of the need to rule out congestive heart failure and atrial fibrillation. Note, 59 minutes spent on the patient, with more than 50% of that time spent on direct patient care. Will follow with you. Note, after the discussion with the attending, I have stopped the patient's Coreg. DICTATING PHYSICIAN: TJ HUGHES M.D. [id number] IDA#: [id number] ID: [id number] JOB#: [id number] ACCT: [id number] cc:TJ HUGHES M.D. >
[2017-10-26] MEDS: INSULIN LISPRO 100 UNIT/ML 3 ML VIAL SUBCUT PRN ×3 (11:36→21:48)
[2017-10-26] MEDS ORDERED: VALSARTAN 160 MG TABLET PO ONE (12:00)
[2017-10-26] MEDS: IPRATROPIUM/ALBUTEROL 0.5-2.5 MG/3 ML AMPUL NEB PRN (12:09)
[2017-10-26 12:12] LABS: ANION GAP 13 (5-19); BLOOD UREA NITROGEN 21 mg/dL (7-20); CALCIUM 9.2 mg/dL (8.4-10.2); CARBON DIOXIDE 30 mmol/L (22-30); CHLORIDE 98 mmol/L (98-107); GLUCOSE 279 mg/dL (75-110); POTASSIUM 3.9 mmol/L (3.6-5.0)
[2017-10-26] MEDS: LEVOFLOXACIN 750 MG TABLET PO SCH (21:47)
[2017-10-26] MEDS: SIMVASTATIN 10 MG TABLET PO SCH (21:48)
--- NOTE | 2017-10-26 22:25 | PROGRESS NOTE E ---
Progress Note NAME: CHERELLE SOUSA : 1930 AGE: 87Y DATE: 10/26/2017 ROOM: 401 SUBJECTIVE: The patient states that her shortness of breath is much improved but less so. She denies any PND, orthopnea. Her leg edema is much improved. There is no arrhythmia seen. There are no anginal symptoms. There are no TIA or CVA symptoms. OBJECTIVE: GENERAL: On examination the patient is mildly obese, in no major distress at present. VITAL SIGNS: She is afebrile with a temperature of 98.3 degrees Fahrenheit, pulse is 70 beats per minute, blood pressure 115/86, respirations are 19 per minute, O2 saturations are 99% on 3 liters nasal cannula. HEENT: Head is atraumatic, normocephalic. Eyes: Pupils are equal, round and regular, reactive to light and accommodation. Extraocular movements are normal. There is no conjunctival pallor. There is no scleral icterus. ENT is negative. NECK: Supple. There is no JVD. Carotids are equal. There is no bruit. There is no goiter. There is no lymphadenopathy. Trachea is central. LUNGS: Show bilateral rhonchi and wheezing. There are no rales of CHF. There are a few dry rhonchi and a few scattered dry crackles bilaterally. HEART: S1, S2 is heard. There is no S3 gallop. There is no S4 gallop. There is a systolic murmur in the left sternal border and the apex. There is no rub. ABDOMEN: Soft, nontender. There is no hepatosplenomegaly. Bowel sounds are well heard. There are no tender areas or masses. There is no rebound, guarding, or rigidity. EXTREMITIES: There is mild pedal edema with chronic venous stasis dermatitis changes. Leg pulses are diminished. Femorals are diminished. There are no femoral bruits. There is no evidence of cellulitis. There is no DVT. There is no cyanosis or clubbing. CENTRAL NERVOUS SYSTEM: The patient is conscious, awake, alert, oriented x3 with no focal deficits. PSYCHIATRIC: The patient does appear to be less anxious than yesterday, but is not agitated. She does not appear to be depressed. INTAKE/OUTPUT: The patient's 24 hour intake is 1885 mL, output is 3000 mL. DIAGNOSTICS: The patient's chest x-ray shows no acute findings. The patient's sodium is 141, potassium 3.9, chloride is 98, CO2 is 30. The patient's BUN is 21, creatinine 0.83, GFR is greater than 60, glucose is 279 and calcium is 9.2, her magnesium is 1.8. Note on 10/25, the patient's triglycerides was 85, total cholesterol is 134.19, LDL cholesterol is good at 64, HDL cholesterol was good at 52, and VLDL cholesterol was 17. TSH was 1.65. IMPRESSION: 1. THERE IS NO EVIDENCE FOR ATRIAL FIBRILLATION. The patient has had no atrial or ventricular arrhythmias. 2. NO EVIDENCE OF CONGESTIVE HEART FAILURE BY PHYSICAL EXAM OR BY ECHOCARDIOGRAPHIC FINDINGS. 3. ACUTE INFECTIVE ASTHMATIC BRONCHITIS. No definite evidence of pneumonia by chest x-ray. 4. RENAL INSUFFICIENCY. This is resolved, GFR is back to normal. 5. CHRONIC LEG EDEMA SECONDARY TO VENOUS INSUFFICIENCY. The patient had a venous Doppler study done yesterday, the report of which is: There is no Doppler evidence of DVT or obstruction in the bilateral lower extremities. 6. HYPERTENSION. Blood pressure is still slightly up. The patient's Diovan will be increased to 160 mg p.o. q.12 hours. 7. DIABETES MELLITUS TYPE 2 INSULIN DEPENDENT. Blood sugar is still slightly up. Would recommend intensifying the antidiabetic treatment. 8. HYPERTRIGLYCERIDEMIA. Good lipid levels. 9. MILD OBESITY. RECOMMENDATIONS: Continue antibiotic. Continue current treatment. Increase the patient's Diovan as mentioned earlier. The patient's cardiac status is stable. The patient desires to follow up with me as an outpatient. Will sign off. Note medical decision making is of moderate complexity. TIME SPENT: Note 35 minutes spent on this patient with more than 50% of the time spent on direct patient care. Discussed with the hospitalist taking care of the patient. Thank you for allowing me to take part in this case. We will sign off. If the patient so desires she will follow up with me in the office. DICTATING PHYSICIAN: TJ HUGHES M.D. [id number] PHY#: [id number] ID: [id number] JOB#: [id number] ACCT: [id number] cc: >
[2017-10-27] MEDS: BENZONATATE 100 MG CAPSULE PO PRN ×2 (05:58→22:12)
[2017-10-27] MEDS: LANSOPRAZOLE 30 MG TAB.RAP.DR PO SCH (05:58)
[2017-10-27] MEDS ORDERED: PREDNISONE 20 MG TABLET PO SCH (10:00)
[2017-10-27] MEDS: IPRATROPIUM/ALBUTEROL 0.5-2.5 MG/3 ML AMPUL NEB PRN ×2 (10:05→15:34)
[2017-10-27] MEDS: VALSARTAN 160 MG TABLET PO SCH ×2 (10:38→22:11)
[2017-10-27] MEDS: ISOSORBIDE MONONITRATE 30 MG TAB.ER.24H PO SCH (10:39)
[2017-10-27] MEDS: DOCUSATE SODIUM 100 MG CAPSULE PO SCH (10:39)
[2017-10-27] MEDS: GUAIFENESIN 600 MG TABLET.SA PO SCH ×2 (10:40→22:11)
[2017-10-27] MEDS: PREDNISONE 20 MG TABLET PO SCH (10:40)
[2017-10-27] MEDS: ASPIRIN 81 MG TABLET, ENT COATED PO SCH (10:40)
[2017-10-27] MEDS: HUM INSULIN NPH/REG INSULIN HM 100 UNIT/1 ML 3 ML SUBCUT SCH ×2 (10:43→18:03)
[2017-10-27] MEDS: ENOXAPARIN SODIUM INJ 40 MG/0.4 ML DISP.SYRIN SUBCUT SCH (10:46)
[2017-10-27] MEDS: INSULIN LISPRO 100 UNIT/ML 3 ML VIAL SUBCUT PRN ×4 (10:46→22:12)
[2017-10-27] MEDS: CYCLOSPORINE 0.05% OPH EMULSIO 0.4 ML DROPERETTE OU SCH ×2 (10:50→18:05)
[2017-10-27] MEDS: MONTELUKAST SODIUM 10 MG TABLET PO SCH ×2 (10:51→22:11)
--- NOTE | 2017-10-27 19:13 | PDOC PROGRESS REPORT ---
Subjective Progress Note for:: 10/27/17 Subjective:: Patient still has a lot of wheezing but is feeling better Cough has improved no chest pains No fever no chills 10/26 improved decrease cough BP is runnig high and meds were adjusted betablockers were d/c as patient has no evidence of systolic CHF 10/27 Feeling better but blood pressure still elevated No chest pain improved shortness of breath Reason For Visit: ATRIAL FIBRILLATION, CHF EXACERBATION Physical Exam Vital Signs: Temp Pulse Resp BP Pulse Ox 98.3 F 82 18 174/73 H 98 10/27/17 15:06 10/27/17 15:34 10/27/17 15:34 10/27/17 15:06 10/27/17 15:34 Intake & Output 10/26/17 10/27/17 10/28/17 00:59 00:59 00:59 Intake Total 1760 1534 1221 Output Total 4300 1725 1705 Balance -2540 -191 -484 Weight 95 kg 94.5 kg 93 kg General appearance: PRESENT: no acute distress, cooperative Head exam: PRESENT: atraumatic, normocephalic Eye exam: PRESENT: conjunctiva pink, EOMI, PERRLA. ABSENT: scleral icterus Neck exam: ABSENT: carotid bruit, JVD, lymphadenopathy, thyromegaly Respiratory exam: PRESENT: wheezes - bilaterally. ABSENT: accessory muscle use Cardiovascular exam: PRESENT: RRR. ABSENT: diastolic murmur, rubs, systolic murmur Pulses: PRESENT: normal dorsalis pedis pul GI/Abdominal exam: PRESENT: normal bowel sounds, soft. ABSENT: distended, guarding, mass, organolmegaly, rebound, tenderness Extremities exam: PRESENT: +1 edema Neurological exam: PRESENT: alert, awake, oriented to person, oriented to place , oriented to time, oriented to situation, CN II-XII grossly intact. ABSENT: motor sensory deficit Psychiatric exam: PRESENT: appropriate affect, normal mood. ABSENT: homicidal ideation, suicidal ideation Results Laboratory Results: 10/25/17 06:26 10/26/17 11:29 10/24/17 10/24/17 10/25/17 18:37 18:37 01:02 Creatine Kinase 65 60 CK-MB (CK-2) 1.12 Troponin I 0.031 NT-Pro-B Natriuret Pep 10/25/17 10/25/17 01:02 06:26 Creatine Kinase CK-MB (CK-2) 0.79 Troponin I 0.046 NT-Pro-B Natriuret Pep 782 H Impressions: Chest/Abdomen CTA 10/24/17 13:56 IMPRESSION: Diffuse ground-glass opacities from pulmonary edema Nonspecific mediastinal adenopathy Question right midpole renal cortical cyst versus mass Chest X-Ray 10/26/17 06:00 IMPRESSION: NO ACUTE RADIOGRAPHIC FINDING IN THE CHEST. Assessment & Plan - Diagnosis (1) Pneumonia Qualifiers: Pneumonia type: due to unspecified organism Laterality: unspecified laterality Lung location: unspecified part of lung Qualified Code(s): J18.9 - Pneumonia, unspecified organism Is this a current diagnosis for this admission?: Yes (2) Acute bronchitis Qualifiers: Bronchitis organism: unspecified organism Qualified Code(s): J20.9 - Acute bronchitis, unspecified Is this a current diagnosis for this admission?: Yes (3) HTN (hypertension), benign Is this a current diagnosis for this admission?: Yes Plan: increase valsartan to bid 10/27 BP still elevated will add Norvasc (4) Diabetes 1.5, managed as type 2 Is this a current diagnosis for this admission?: Yes (5) GERD (gastroesophageal reflux disease) Qualifiers: Esophagitis presence: esophagitis presence not specified Qualified Code(s) : K21.9 - Gastro-esophageal reflux disease without esophagitis Is this a current diagnosis for this admission?: Yes (6) Hypokalemia Is this a current diagnosis for this admission?: Yes - Time Time Spent with patient: 15-24 minutes - Patient may be discharged in 24-48 hrs if she continues to improve
[2017-10-27] MEDS ORDERED: AMLODIPINE BESYLATE 10 MG TABLET PO ONE (20:00)
[2017-10-27] MEDS: SIMVASTATIN 10 MG TABLET PO SCH (22:11)
[2017-10-27] MEDS: LEVOFLOXACIN 750 MG TABLET PO SCH (22:11)
[2017-10-28] MEDS: LANSOPRAZOLE 30 MG TAB.RAP.DR PO SCH (06:00)
[2017-10-28] MEDS: HUM INSULIN NPH/REG INSULIN HM 100 UNIT/1 ML 3 ML SUBCUT SCH ×2 (08:13→16:37)
[2017-10-28] MEDS: IPRATROPIUM/ALBUTEROL 0.5-2.5 MG/3 ML AMPUL NEB PRN ×2 (09:30→21:32)
[2017-10-28] MEDS: AMLODIPINE BESYLATE 10 MG TABLET PO SCH (11:25)
[2017-10-28] MEDS: VALSARTAN 160 MG TABLET PO SCH ×2 (11:26→21:47)
[2017-10-28] MEDS: DOCUSATE SODIUM 100 MG CAPSULE PO SCH (11:26)
[2017-10-28] MEDS: ASPIRIN 81 MG TABLET, ENT COATED PO SCH (11:26)
[2017-10-28] MEDS: CYCLOSPORINE 0.05% OPH EMULSIO 0.4 ML DROPERETTE OU SCH ×2 (11:26→18:00)
[2017-10-28] MEDS: PREDNISONE 20 MG TABLET PO SCH (11:27)
[2017-10-28] MEDS: GUAIFENESIN 600 MG TABLET.SA PO SCH ×2 (11:27→21:47)
[2017-10-28] MEDS: ISOSORBIDE MONONITRATE 30 MG TAB.ER.24H PO SCH (11:27)
[2017-10-28] MEDS: FENTANYL 25 MCG/HR PATCH.TD72 TD SCH (11:28)
[2017-10-28] MEDS: ENOXAPARIN SODIUM INJ 40 MG/0.4 ML DISP.SYRIN SUBCUT SCH (11:29)
[2017-10-28] MEDS ORDERED: PREDNISONE 20 MG TABLET PO SCH (12:27)
[2017-10-28] MEDS ORDERED: FUROSEMIDE INJ/PF 20 MG/2 ML SDV IV ONE (13:15)
--- NOTE | 2017-10-28 14:50 | PDOC PROGRESS REPORT ---
Subjective Progress Note for:: 10/28/17 Subjective:: Patient is feeling well She is still wheezing no fever no chills She has been ambulating Reason For Visit: ATRIAL FIBRILLATION, CHF EXACERBATION Physical Exam Vital Signs: Temp Pulse Resp BP Pulse Ox 98.1 F 100 16 160/81 H 100 10/28/17 11:37 10/28/17 14:00 10/28/17 11:37 10/28/17 11:37 10/28/17 11:37 Intake & Output 10/27/17 10/28/17 10/29/17 00:59 00:59 00:59 Intake Total 1534 1221 361 Output Total 1725 1705 1000 Balance -191 -484 -489 Weight 94.5 kg 93 kg 93.1 kg General appearance: PRESENT: no acute distress, cooperative Head exam: PRESENT: atraumatic, normocephalic Eye exam: PRESENT: conjunctiva pink, EOMI, PERRLA. ABSENT: scleral icterus Neck exam: ABSENT: carotid bruit, JVD, lymphadenopathy, thyromegaly Respiratory exam: PRESENT: wheezes - bilaterally. ABSENT: accessory muscle use Cardiovascular exam: PRESENT: RRR. ABSENT: diastolic murmur, rubs, systolic murmur Pulses: PRESENT: normal dorsalis pedis pul GI/Abdominal exam: PRESENT: normal bowel sounds, soft. ABSENT: distended, guarding, mass, organolmegaly, rebound, tenderness Extremities exam: PRESENT: +1 edema Neurological exam: PRESENT: alert, awake, oriented to person, oriented to place , oriented to time, oriented to situation, CN II-XII grossly intact. ABSENT: motor sensory deficit Psychiatric exam: PRESENT: appropriate affect, normal mood. ABSENT: homicidal ideation, suicidal ideation Results Laboratory Results: 10/25/17 06:26 10/26/17 11:29 10/24/17 10/24/17 10/25/17 18:37 18:37 01:02 Creatine Kinase 65 60 CK-MB (CK-2) 1.12 Troponin I 0.031 NT-Pro-B Natriuret Pep 10/25/17 10/25/17 01:02 06:26 Creatine Kinase CK-MB (CK-2) 0.79 Troponin I 0.046 NT-Pro-B Natriuret Pep 782 H Impressions: Chest/Abdomen CTA 10/24/17 13:56 IMPRESSION: Diffuse ground-glass opacities from pulmonary edema Nonspecific mediastinal adenopathy Question right midpole renal cortical cyst versus mass Chest X-Ray 10/26/17 06:00 IMPRESSION: NO ACUTE RADIOGRAPHIC FINDING IN THE CHEST. Assessment & Plan - Diagnosis (1) Pneumonia Qualifiers: Pneumonia type: due to unspecified organism Laterality: unspecified laterality Lung location: unspecified part of lung Qualified Code(s): J18.9 - Pneumonia, unspecified organism Is this a current diagnosis for this admission?: Yes (2) Acute bronchitis Qualifiers: Bronchitis organism: unspecified organism Qualified Code(s): J20.9 - Acute bronchitis, unspecified Is this a current diagnosis for this admission?: Yes (3) HTN (hypertension), benign Is this a current diagnosis for this admission?: Yes (4) Diabetes 1.5, managed as type 2 Is this a current diagnosis for this admission?: Yes (5) GERD (gastroesophageal reflux disease) Qualifiers: Esophagitis presence: esophagitis presence not specified Qualified Code(s) : K21.9 - Gastro-esophageal reflux disease without esophagitis Is this a current diagnosis for this admission?: Yes (6) Hypokalemia Is this a current diagnosis for this admission?: Yes - Time Time Spent with patient: General patient's been improving Continue the present management We will discontinue Jimenez catheter Encourage ambulation Patient to be discharged in 24-48 hours if she continues to improve Time Spent with patient: 25-34 minutes
[2017-10-28] MEDS ORDERED: FUROSEMIDE INJ/PF 20 MG/2 ML SDV ONE (16:34)
[2017-10-28] MEDS: INSULIN LISPRO 100 UNIT/ML 3 ML VIAL SUBCUT PRN ×2 (16:39→21:47)
[2017-10-28] MEDS: LEVOFLOXACIN 750 MG TABLET PO SCH (21:47)
[2017-10-28] MEDS: SIMVASTATIN 10 MG TABLET PO SCH (21:47)
[2017-10-28] MEDS: MONTELUKAST SODIUM 10 MG TABLET PO SCH (21:47)
[2017-10-28] MEDS: BENZONATATE 100 MG CAPSULE PO PRN (21:47)
[2017-10-29] MEDS: LANSOPRAZOLE 30 MG TAB.RAP.DR PO SCH (05:38)
[2017-10-29 07:08] LABS: ABSOLUTE LYMPHOCYTES (AUTO) 0.9 10^3/uL (0.5-4.7); ABSOLUTE MONOCYTES (AUTO) 0.7 10^3/uL (0.1-1.4); ABSOLUTE NEUT (AUTO) 6.2 10^3/uL (1.7-8.2); BASOPHILS % (AUTO) 0.2 % (0-2); HEMATOCRIT 37.3 % (36.0-47.0); HEMOGLOBIN 12.4 g/dL (12.0-15.5); MEAN CORPUSCULAR HEMOGLOBIN 28.4 pg (27.0-33.4); MEAN CORPUSCULAR HGB CONC 33.1 g/dL (32.0-36.0); MEAN CORPUSCULAR VOLUME 86 fl (80-97); MONOCYTES % (AUTO) 9.3 % (3-13); PLATELET COUNT 194 10^3/uL (150-450); RED BLOOD COUNT 4.36 10^6/uL (3.72-5.28); RED CELL DISTRIBUTION WIDTH 14.6 % (11.5-14.0); SEGMENTED NEUTROPHILS % (AUTO) 78.5 % (42-78); TOTAL CELLS COUNTED % (AUTO) 100 %; WHITE BLOOD COUNT 7.9 10^3/uL (4.0-10.5)
[2017-10-29 07:22] LABS: ANION GAP 8 (5-19); BLOOD UREA NITROGEN 28 mg/dL (7-20); CALCIUM 9.1 mg/dL (8.4-10.2); CARBON DIOXIDE 33 mmol/L (22-30); CHLORIDE 103 mmol/L (98-107); GLUCOSE 226 mg/dL (75-110); POTASSIUM 3.5 mmol/L (3.6-5.0); SODIUM 143.7 mmol/L (137-145)
[2017-10-29] MEDS ORDERED: POTASSIUM CHLORIDE 10 MEQ TABLET.SA PO ONE (09:06)
[2017-10-29 09:40] LABS: PHOSPHORUS 3.2 mg/dL (2.5-4.5)
[2017-10-29] MEDS: CYCLOSPORINE 0.05% OPH EMULSIO 0.4 ML DROPERETTE OU SCH ×2 (09:52→18:17)
[2017-10-29] MEDS: DOCUSATE SODIUM 100 MG CAPSULE PO SCH (09:52)
[2017-10-29] MEDS: ISOSORBIDE MONONITRATE 30 MG TAB.ER.24H PO SCH (09:52)
[2017-10-29] MEDS: GUAIFENESIN 600 MG TABLET.SA PO SCH ×2 (09:52→22:07)
[2017-10-29] MEDS: AMLODIPINE BESYLATE 10 MG TABLET PO SCH (09:52)
[2017-10-29] MEDS: VALSARTAN 160 MG TABLET PO SCH ×2 (09:52→22:07)
[2017-10-29] MEDS: ASPIRIN 81 MG TABLET, ENT COATED PO SCH (09:52)
[2017-10-29] MEDS: ENOXAPARIN SODIUM INJ 40 MG/0.4 ML DISP.SYRIN SUBCUT SCH (09:52)
[2017-10-29] MEDS: HUM INSULIN NPH/REG INSULIN HM 100 UNIT/1 ML 3 ML SUBCUT SCH (09:53)
[2017-10-29] MEDS ORDERED: HUM INSULIN NPH/REG INSULIN HM 100 UNIT/1 ML 3 ML SUBCUT SCH (16:00)
--- NOTE | 2017-10-29 16:53 | PDOC PROGRESS REPORT ---
Subjective Progress Note for:: 10/29/17 Subjective:: 87 year old female with a past medical history of Type 2 diabetes Hypertension GERD Chronic pain Anemia of chronic disease Vitamin D deficiency Depression Chronic venous insufficiency Eczema Arthritis Chronic bilateral lower extremity edema next Hyperlipidemia Urinary incontinence She presented to the hospital with shortness of breath and purulent expectoration and was started on antibiotics for pneumonia. Feels better, no complaints at present. Reason For Visit: ATRIAL FIBRILLATION, CHF EXACERBATION Physical Exam Vital Signs: Temp Pulse Resp BP Pulse Ox 98.1 F 79 16 146/51 H 87 L 10/29/17 11:10 10/29/17 14:14 10/29/17 14:14 10/29/17 11:10 10/29/17 14:14 Intake & Output 10/28/17 10/29/17 10/30/17 06:59 06:59 06:59 Intake Total 1311 692 Output Total 1980 600 Balance -669 92 Weight 93.1 kg 93.3 kg General appearance: PRESENT: no acute distress Head exam: PRESENT: normocephalic Eye exam: ABSENT: scleral icterus Ear exam: PRESENT: normal external ear exam Mouth exam: PRESENT: moist Respiratory exam: PRESENT: symmetrical, unlabored Cardiovascular exam: PRESENT: RRR GI/Abdominal exam: PRESENT: normal bowel sounds, soft. ABSENT: tenderness Rectal exam: PRESENT: deferred Extremities exam: ABSENT: pedal edema Neurological exam: PRESENT: alert, awake Psychiatric exam: PRESENT: appropriate affect Results Laboratory Results: 10/29/17 07:00 10/29/17 07:00 10/29/17 10/29/17 10/29/17 07:00 07:00 07:00 WBC 7.9 RBC 4.36 Hgb 12.4 Hct 37.3 MCV 86 MCH 28.4 MCHC 33.1 RDW 14.6 H Plt Count 194 Seg Neutrophils % 78.5 H Lymphocytes % 12.0 L Monocytes % 9.3 Eosinophils % 0.0 Basophils % 0.2 Absolute Neutrophils 6.2 Absolute Lymphocytes 0.9 Absolute Monocytes 0.7 Absolute Eosinophils 0.0 Absolute Basophils 0.0 Sodium 143.7 Potassium 3.5 L Chloride 103 Carbon Dioxide 33 H Anion Gap 8 BUN 28 H Creatinine 0.83 Est GFR ( Amer) > 60 Est GFR (Non-Af Amer) > 60 Glucose 226 H Calcium 9.1 Phosphorus 3.2 Magnesium 2.2 10/24/17 10/24/17 10/25/17 18:37 18:37 01:02 Creatine Kinase 65 60 CK-MB (CK-2) 1.12 Troponin I 0.031 NT-Pro-B Natriuret Pep 10/25/17 10/25/17 01:02 06:26 Creatine Kinase CK-MB (CK-2) 0.79 Troponin I 0.046 NT-Pro-B Natriuret Pep 782 H Impressions: Chest/Abdomen CTA 10/24/17 13:56 IMPRESSION: Diffuse ground-glass opacities from pulmonary edema Nonspecific mediastinal adenopathy Question right midpole renal cortical cyst versus mass Chest X-Ray 10/26/17 06:00 IMPRESSION: NO ACUTE RADIOGRAPHIC FINDING IN THE CHEST. Assessment & Plan - Diagnosis (1) Pneumonia Qualifiers: Pneumonia type: due to unspecified organism Laterality: unspecified laterality Lung location: unspecified part of lung Qualified Code(s): J18.9 - Pneumonia, unspecified organism Is this a current diagnosis for this admission?: Yes Plan: Day 9 of antibiotics. Sputum culture grew normal mario. Ambulate, wean oxygen, plan to discharge in 24 hrs. (2) Acute exacerbation of CHF (congestive heart failure) Qualifiers: Heart failure type: diastolic Qualified Code(s): I50.33 - Acute on chronic diastolic (congestive) heart failure Is this a current diagnosis for this admission?: Yes Plan: Resolved (3) Atrial fibrillation Qualifiers: Atrial fibrillation type: unspecified Qualified Code(s): I48.91 - Unspecified atrial fibrillation Is this a current diagnosis for this admission?: Yes Plan: Ruled out. (4) Chronic back pain Is this a current diagnosis for this admission?: Yes Plan: Continue Fentanyl patch and Earlimart prn. (5) GERD (gastroesophageal reflux disease) Qualifiers: Esophagitis presence: esophagitis presence not specified Qualified Code(s) : K21.9 - Gastro-esophageal reflux disease without esophagitis Is this a current diagnosis for this admission?: Yes Plan: PPI (6) Diabetes 1.5, managed as type 2 Is this a current diagnosis for this admission?: Yes Plan: Diabetic diet Insulin sliding scale. Adjust 70/30 dose for better control.. (7) Stage II decubitus ulcer Is this a current diagnosis for this admission?: Yes Plan: Wound care (8) DVT prophylaxis Is this a current diagnosis for this admission?: Yes Plan: Subcutaneous Lovenox. - Time Time Spent with patient: 25-34 minutes
[2017-10-29] MEDS: BENZONATATE 100 MG CAPSULE PO PRN ×2 (18:15→22:05)
[2017-10-29] MEDS: INSULIN LISPRO 100 UNIT/ML 3 ML VIAL SUBCUT PRN ×2 (18:17→22:07)
[2017-10-29] MEDS ORDERED: FUROSEMIDE INJ/PF 20 MG/2 ML SDV IV ONE (18:36)
[2017-10-29] MEDS: MONTELUKAST SODIUM 10 MG TABLET PO SCH (22:07)
[2017-10-29] MEDS: SIMVASTATIN 10 MG TABLET PO SCH (22:07)
[2017-10-30] MEDS: LANSOPRAZOLE 30 MG TAB.RAP.DR PO SCH (05:13)
[2017-10-30] MEDS ORDERED: HUM INSULIN NPH/REG INSULIN HM 100 UNIT/1 ML 3 ML SUBCUT SCH (08:00)
[2017-10-30] MEDS ORDERED: FUROSEMIDE 20 MG TABLET PO SCH (08:00)
[2017-10-30] MEDS ORDERED: PREDNISONE 20 MG TABLET PO SCH (10:00)
[2017-10-30] MEDS ORDERED: LACTOBACILLUS ACIDOPHILUS 250 MG TAB PO SCH (10:00)
[2017-10-30] MEDS ORDERED: FUROSEMIDE INJ/PF 20 MG/2 ML SDV IV ONE (10:43)
--- NOTE | 2017-10-30 10:45 | PDOC DISCHARGE SUMMARY ---
General - Admit/Disc Date/PCP Admission Date/Primary Care Provider: 10/24/17 16:37 LUIS HERNANDEZ MD Discharge Date: 10/30/17 - Discharge Diagnosis (1) Pneumonia Is this a current diagnosis for this admission?: Yes (2) Acute exacerbation of CHF (congestive heart failure) Is this a current diagnosis for this admission?: Yes Summary: Diastolic CHF exacerbation (3) Atrial fibrillation Is this a current diagnosis for this admission?: No Summary: This was ruled out (4) Chronic back pain Is this a current diagnosis for this admission?: Yes (5) GERD (gastroesophageal reflux disease) Is this a current diagnosis for this admission?: Yes (6) Diabetes 1.5, managed as type 2 Is this a current diagnosis for this admission?: Yes (7) Stage II decubitus ulcer Is this a current diagnosis for this admission?: Yes (8) DVT prophylaxis Is this a current diagnosis for this admission?: Yes (9) Opiate dependence, continuous Is this a current diagnosis for this admission?: Yes - Additional Information Resuscitation Status: Full Code Discharge Diet: Cardiac, Diabetic Discharge Activity: Activity As Tolerated, Balance Activity w/Rest Prescriptions: Amlodipine Besylate [Norvasc 10 mg Tablet] 10 mg PO DAILY 30 Days #30 tablet Guaifenesin [Mucinex Sr 600 mg Tablet.sa] 1,200 mg PO Q12 7 Days #14 tablet.sa Lactobacillus Acidophilus [Bacid 250 mg Tablet] 250 mg PO DAILY 7 Days #7 tab Home Medications: Fesoterodine Fumarate [Toviaz] 8 mg PO DAILY 04/23/11 Simvastatin [Zocor 20 mg Tablet] 20 mg PO QHS 04/23/11 Cyclobenzaprine HCl [Flexeril 10 mg Tablet] 10 mg PO HSP PRN 04/24/11 Insuln Asp Prt/Insulin Aspart [Novolog Mix 70-30 Flexpen Syrn] 12 unit SQ [id number] 06/28/12 Furosemide [Lasix 20 mg Tablet] 20 mg PO QAM 09/23/12 Aspirin [Aspirin EC] 81 mg PO DAILY 10/24/17 Benzonatate 100 mg PO TIDP PRN MDD FOR 10DAYS STARTING 10/22/17 10/24/17 Cyclosporine 0.05% Oph Emulsio [Restasis 0.05% Oph Emulsion Pf 0.4 ml] 1 drop OU BID 10/24/17 Estradiol [Estrace] 1 applic VG QHS 10/24/17 Fentanyl [Duragesic 25 mcg/hr Transdermal Patch] 1 each TD Q3D 10/24/17 Hydrocodone/Acetaminophen [Hydrocodone-Acetamin 7.5-325] 1 tab PO Q8HP PRN 10/24 Insulin Aspart Prot/Insuln Asp [Novolog Mix 70-30 Flexpen Syrn] 10 unit SQ ACSUPPER 10/24/17 Isosorbide Mononitrate [Imdur 30 mg Tablet.er] 30 mg PO DAILY 10/24/17 Montelukast Sodium 10 mg PO DAILY 10/24/17 Nitroglycerin 1 tab SL Q5MP PRN 10/24/17 Pantoprazole Sodium 40 mg PO DAILY 10/24/17 Amlodipine Besylate [Norvasc 10 mg Tablet] 10 mg PO DAILY 30 Days #30 tablet Docusate Sodium [Colace 100 mg Capsule] 100 mg PO DAILY capsule 10/30/17 Guaifenesin [Mucinex Sr 600 mg Tablet.sa] 1,200 mg PO Q12 7 Days #14 tablet.sa 10/30/17 Lactobacillus Acidophilus [Bacid 250 mg Tablet] 250 mg PO DAILY 7 Days #7 tab Valsartan [Diovan 160 mg Tablet] 160 mg PO Q12 tablet 10/30/17 History of Present Illness History of Present Illness: The patient is an 87 year old female with a past medical history of Type 2 diabetes Hypertension GERD Chronic pain Anemia of chronic disease Vitamin D deficiency Depression Chronic venous insufficiency Eczema Arthritis Chronic bilateral lower extremity edema next Hyperlipidemia Urinary incontinence Outpatient medications: Coreg 25 mg twice a day Levaquin 750 mg daily Today is day 3 Embarrass 7.5 every 8 as needed Fentanyl patch 25 mcg every 72 hours Valsartan 160 mg daily Imdur 30 mg daily Pantoprazole 40 mg daily Lasix 20 mg daily Flexeril 10 mg at bedtime as needed Singulair daily Aspirin 81 mg daily Nitroglycerin sublingual as needed Insulin 70 3012 units with breakfast 10 units with dinner Simvastatin 20 mg daily Toviaz 8 mg daily Estradiol vaginal cream Tuesday Benzonatate 100 mg PO prn Denies a prior history of heart failure or atrial fibrillation. Healthcare power of summer camp counselor is her daughter Tiffanie. Phone #[phone]. The patient requests to be a full code. She presented to the hospital with cough with yellow expectoration which started 3 days ago and she was started on Levaquin by her PCP. Dyspnea progressively got worse with lower extremity edema and chest tightness. She was found to pulmonary edema and was given IV Lasix and nebs. The patient was also given antibiotic for pneumonia. She is doing better and is stable for discharge. She is requiring 2L O2 by nasal cannula- this will be arranged. Valsartan was increased to 160mg BID for better BP control. Amlodipine 10 mg was added to her regimen. She is to follow up with Dr. Hernandez in 1 week. Hospital Course Hospital Course: as above Physical Exam Vital Signs: Temp Pulse Resp BP Pulse Ox 98.6 F 82 16 140/92 H 96 10/30/17 08:52 10/30/17 08:52 10/30/17 08:52 10/30/17 08:52 10/30/17 03:53 Intake & Output 10/29/17 10/30/17 10/31/17 06:59 06:59 06:59 Intake Total 692 1426 Output Total 600 Balance 92 1426 Weight 93.3 kg 93.1 kg General appearance: PRESENT: no acute distress Respiratory exam: PRESENT: rhonchi, symmetrical, unlabored. ABSENT: accessory muscle use, crackles, wheezes Cardiovascular exam: PRESENT: RRR Neurological exam: PRESENT: alert, awake Results Laboratory Results: 10/29/17 07:00 10/29/17 07:00 10/24/17 10/24/17 10/25/17 18:37 18:37 01:02 Creatine Kinase 65 60 CK-MB (CK-2) 1.12 Troponin I 0.031 NT-Pro-B Natriuret Pep 10/25/17 10/25/17 10/29/17 01:02 06:26 07:00 Creatine Kinase CK-MB (CK-2) 0.79 Troponin I 0.046 NT-Pro-B Natriuret Pep 782 H 490 H Impressions: Chest/Abdomen CTA 10/24/17 13:56 IMPRESSION: Diffuse ground-glass opacities from pulmonary edema Nonspecific mediastinal adenopathy Question right midpole renal cortical cyst versus mass Chest X-Ray 10/26/17 06:00 IMPRESSION: NO ACUTE RADIOGRAPHIC FINDING IN THE CHEST. Qualifiers - * PATIENT BEING DISCHARGED WITH ANY OF THE FOLLOWING DIAGNOSIS: No Plan Time Spent: Greater than 30 Minutes
[2017-10-30] MEDS: GUAIFENESIN 600 MG TABLET.SA PO SCH (10:46)
[2017-10-30] MEDS: DOCUSATE SODIUM 100 MG CAPSULE PO SCH (10:46)
[2017-10-30] MEDS: ASPIRIN 81 MG TABLET, ENT COATED PO SCH (10:46)
[2017-10-30] MEDS: VALSARTAN 160 MG TABLET PO SCH (10:47)
[2017-10-30] MEDS: ISOSORBIDE MONONITRATE 30 MG TAB.ER.24H PO SCH (10:47)
[2017-10-30] MEDS: AMLODIPINE BESYLATE 10 MG TABLET PO SCH (10:48)
[2017-10-30] MEDS: ENOXAPARIN SODIUM INJ 40 MG/0.4 ML DISP.SYRIN SUBCUT SCH (10:51)
[2017-10-30] MEDS: CYCLOSPORINE 0.05% OPH EMULSIO 0.4 ML DROPERETTE OU SCH (10:53)
[2017-10-30] MEDS: INSULIN LISPRO 100 UNIT/ML 3 ML VIAL SUBCUT PRN (12:35)
[2017-10-30] MEDS: IPRATROPIUM/ALBUTEROL 0.5-2.5 MG/3 ML AMPUL NEB PRN (13:44)
[2017-10-30 14:46] VITALS: BP 131/56
== END 2017-10-30 16:00 | disposition home health service (06) | DRG 193 ==
LOC: ER 10:54 → EH 16:37 → 4N 20:06
PROVIDERS: ADMIT Internal Medicine; ATTEND Internal Medicine
DX: J18.9 Pneumonia, unspecified organism (principal); I50.33 Acute on chronic diastolic (congestive) heart failure; F11.20 Opioid dependence, uncomplicated; E87.6 Hypokalemia; I11.0 Hypertensive heart disease with heart failure; E11.9 Type 2 diabetes mellitus without complications; J20.9 Acute bronchitis, unspecified; I48.91 Unspecified atrial fibrillation; E78.5 Hyperlipidemia, unspecified; K21.9 Gastro-esophageal reflux disease without esophagitis; L89.92 Pressure ulcer of unspecified site, stage 2; M54.9 Dorsalgia, unspecified; Z88.2 Allergy status to sulfonamides; Z79.82 Long term (current) use of aspirin; Z79.4 Long term (current) use of insulin; Z79.84 Long term (current) use of oral hypoglycemic drugs
CPT/HCPCS: 36415; 71045; 71275; 80048; 80053; 80061; 81001; 82550; 82553; 82962; 83036; 83735; 83880; 84100; 84443; 84484; 85025; 85027; 85610; 85730; 87040; 87070; 87205; 93005; 93010; 93306; 93970; 94640; 94667; 94799; 96365; 96368; 96375; 99291; G8978-GP; G8979-GP; J0456; J0696; J1650; J1815; J1940; J3490; J7512; J7620

== ENCOUNTER → 2018-07-19 | Outpatient (CLI) | payer MEDICARE, OTHER ==
[2018-07-19 18:19] LABS: ALANINE AMINOTRANSFERASE 20 U/L (9-52); ALKALINE PHOSPHATASE 60 U/L (38-126); ANION GAP 8 (5-19); ASPARTATE AMINO TRANSFERASE 17 U/L (14-36); BILIRUBIN,DIRECT 0.1 mg/dL (0.0-0.4); BILIRUBIN,TOTAL 0.2 mg/dL (0.2-1.3); BLOOD UREA NITROGEN 18 mg/dL (7-20); CALCIUM 9.6 mg/dL (8.4-10.2); CARBON DIOXIDE 31 mmol/L (22-30); CHLORIDE 104 mmol/L (98-107); GLUCOSE 169 mg/dL (75-110); POTASSIUM 5.2 mmol/L (3.6-5.0); SODIUM 142.6 mmol/L (137-145); TOTAL PROTEIN 6.3 g/dL (6.3-8.2)
[2018-07-20 08:30] LABS: HEMATOCRIT 34.8 % (36.0-47.0); HEMOGLOBIN 11.2 g/dL (12.0-15.5); MEAN CORPUSCULAR HEMOGLOBIN 25.5 pg (27.0-33.4); MEAN CORPUSCULAR HGB CONC 32.1 g/dL (32.0-36.0); MEAN CORPUSCULAR VOLUME 80 fl (80-97); RED BLOOD COUNT 4.38 10^6/uL (3.72-5.28); RED CELL DISTRIBUTION WIDTH 25.5 % (11.5-14.0); WHITE BLOOD COUNT 4.8 10^3/uL (4.0-10.5)
[2018-07-20 08:31] LABS: PLATELET COUNT 234 10^3/uL (150-450)
== END ==
LOC: OD 17:02
PROVIDERS: ATTEND Internal Medicine Gastroenterology
DX: D50.0 Iron deficiency anemia secondary to blood loss (chronic) (principal)
CPT/HCPCS: 36415; 80048; 80076; 82728; 85025; 85027